=== PATIENT | female | born 1930 | race Caucasian/White ===

== ENCOUNTER 2020-05-11 21:35 | Inpatient (IN) | payer MEDICARE, OTHER ==
[2020-05-12 00:30] LABS: PTT 28.5 sec (22.9-36.1); Prothrombin Time 13.3 sec (12.0-14.7)
[2020-05-12 00:38] LABS: #Basophils 0.1 thou/uL (0.0-0.2); #Lymphocytes 1.8 thou/uL (1.20-3.40); #Monocytes 0.6 thou/uL (0.11-0.59); #Neutrophils 9.4 thou/uL (1.40-6.50); %Basophils 0.6 % (0.0-1.0); %Eosinophils 0.3 % (0.0-10.0); %Neutrophils 79.1 % (42.0-75.0); Hemoglobin 11.1 g/dL (12.0-16.0); Mean Corpuscular HGB CONC 33.6 g/dL (32.0-36.0); Mean Corpuscular Hemoglobin 29.2 pg (27.0-31.0); Mean Platelet Volume 7.4 fL (7.4-10.4); Platelet Count 404 thou/uL (130-400); RBC Distribution Width 15.4 % (11.5-14.5); Red Blood Cell (RBC) Count 3.81 mill/uL (4.20-5.40); White Blood Cell (WBC) Count 11.9 thou/uL (4.8-10.8)
[2020-05-12 01:56] LABS: Troponin I Less than 0.010 ng/mL (< 0.028)
[2020-05-12 01:57] LABS: Anion Gap 11 mmol/L (10-20); BUN (Urea Nitrogen) 31 mg/dL (9.8-20.1); Calc. Creatinine Clearance 0 mL/min (70-130); Carbon Dioxide 25 mmol/L (23-31); Chloride 100 mmol/L (98-107); Estimated GFR-MDRD 36; Potassium 4.4 mmol/L (3.5-5.1); Sodium 132 mmol/L (136-145)
[2020-05-12 01:58] LABS: ALT (SGPT) 11 U/L (8-55); AST (SGOT) 28 U/L (5-34); Albumin 3.6 g/dL (3.4-4.8); Alkaline Phosphatase 72 U/L (40-110); Bilirubin, Total 0.3 mg/dL (0.2-1.2); Calcium 9.1 mg/dL (7.8-10.44); Globulin 3.3 g/dL (2.4-3.5); Glucose 136 mg/dL (83-110); Lipase 76 U/L (8-78); Magnesium 2.3 mg/dL (1.6-2.6); Protein, Total 6.9 g/dL (5.8-8.1)
[2020-05-12 01:59] LABS: Acetaminophen Less than 6.0 mcg/mL (10.0-30.0); Alcohol Less than 10 mg/dL (Less than 10); Salicylate Less than 8.0 mg/dL (15.0-30.0)
[2020-05-12] MEDS ORDERED: cefTRIAXone\\ROCEPHIN 1 GM VIAL ONE (04:01)
[2020-05-12 04:36] LABS: Bacteria/HPF None Seen HPF (None Seen); Bilirubin Negative (Negative); Blood, Urine 2+ (Negative); Clarity Clear (Clear); Glucose, Urine (Dipstick) Normal (Negative); Ketone, Urine Negative (Negative); Leukocyte Negative Leu/uL (Negative); Nitrite Negative (Negative); Protein, Urine (Dipstick) 30 mg/dL (Neg-Trace); RBC/HPF 0-3 HPF (0-3); Squamous Epithelial 0-3 HPF (0-3); Urobilinogen Normal mg/dL (Less than 2)
[2020-05-12] MEDS ORDERED: Ondansetron ODT 4 MG TAB SL PRN (06:15)
[2020-05-12] MEDS ORDERED: Acetaminophen 325 MG TAB PO PRN ×2 (06:15→07:50)
[2020-05-12] MEDS ORDERED: Ondansetron PF 4 MG/2 ML Vial IVP PRN ×2 (06:15→07:50)
[2020-05-12] MEDS ORDERED: Sodium Chloride 0.9% 1,000 ML IV SCH (06:15)
--- NOTE | 2020-05-12 07:24 | RAD ---
CHEST 1 VIEW: Date: 05/11/2020 HISTORY: Not provided. FINDINGS: Elongation of the aorta. Enlarged cardiac silhouette. Pulmonary vessels and hilum are normal. Costoph renic angles are clear. Chronic lung parenchymal changes suspected. No consolidation or mass. No pneu mothorax or acute osseous abnormalities. IMPRESSION: 1. Cardiomegaly. 2. Presumed chronic lung parenchymal changes. POS: OFF
[2020-05-12] MEDS ORDERED: Acetaminophen 650 MG Suppository PR PRN (07:50)
[2020-05-12] MEDS: Sodium Chloride 0.9% 1,000 ML IV SCH (08:00)
[2020-05-12 08:03] VITALS: BMI 18.8
[2020-05-12] MEDS ORDERED: cloNIDine 0.1 MG TAB PO PRN (08:07)
[2020-05-12 09:00] LABS: Medtox Reader # READER 4
[2020-05-12] MEDS ORDERED: Cyanocobalamin (Vitamin B-12) 1,000 MCG TAB PO SCH (09:00)
[2020-05-12 09:01] LABS: Amphetamine Not Detected (NotDetected); Barbiturates Screen Not Detected (NotDetected); Benzodiazepine Screen Not Detected (NotDetected); Cocaine Metabolite Screen Not Detected (NotDetected); Medtox Control Line Valid? VALID (VALID); Methadone Not Detected (NotDetected); Methamphetamine Not Detected (NotDetected); Opiate Screen Not Detected (NotDetected); Oxycodone Screen Not Detected (NotDetected); Phencyclidine (PCP) Not Detected (NotDetected); THC/Cannabinoid Screen Not Detected (NotDetected); Tricyclic Screen Detected (NotDetected)
[2020-05-12] MEDS ORDERED: Levothyroxine Sodium 100 MCG TAB PO SCH (10:00)
[2020-05-12] MEDS: Aspirin 81 mg Enteric Coated Tablet PO SCH (10:37)
[2020-05-12] MEDS: Cyanocobalamin (Vitamin B-12) 1,000 MCG TAB PO SCH (10:37)
[2020-05-12] MEDS: Amlodipine 5 MG TAB PO SCH (10:38)
[2020-05-12] MEDS: Folic Acid 1 MG TAB PO SCH (10:39)
--- NOTE | 2020-05-12 10:49 | HP ---
PRIMARY CARE PHYSICIAN: Dr. Sujit Angeles. CHIEF COMPLAINT: Lethargy. HISTORY OF PRESENT ILLNESS: The patient is an 89-year-old female with a past medical history significant for dementia, anxiety, hypothyroidism, TIAs, hypertension, and hyperlipidemia, who presents to the emergency department via EMS for altered mental status. The patient is currently staying at a Rehab facility, [facility], status post fall. Rehabilitation staff reported that the patient seemed to be lethargic and they were concerned for a stroke. Of note, it was documented by EMS that the patient was started on Seroquel that same day. The patient's baseline is apparently A and O x1. Per EMS documentation, the patient was alert upon arrival. She was found to be mildly hypertensive and mildly tachycardic with normal respirations and a normal SpO2 sat. She is afebrile. The patient was brought into the ER to rule out stroke. In the emergency department, the patient was found to be mildly hypertensive with blood pressure of 169/93 and mildly tachycardic with a heart rate of 95 with normal respirations, normal SpO2, and afebrile. CT brain was negative for any acute intracranial process. CTA of head and neck was negative for any acute process. WBC is 11.9. Lactic acid 1.0. Urine unremarkable and UDS unremarkable. The patient was given a prophylactic dose of Rocephin IVPB per the admitting physician until urine culture result. PAST MEDICAL HISTORY: 1. Dementia. 2. Hypertension. 3. Hyperlipidemia. 4. Hypothyroidism. 5. TIAs. 6. Anxiety. PAST SURGICAL HISTORY: Unable to obtain due to patient's altered mental status. SOCIAL HISTORY: The patient currently resides at [facility], appears to be after status post fall. It is unknown whether she has any history of smoking, alcohol, or drug abuse. FAMILY HISTORY: Unable to obtain due to patient's altered mental status. ALLERGIES: REPORTED ALLERGIES ARE TO , BENAZEPRIL, ESOMEPRAZOLE, HYDROCHLOROTHIAZIDE, IRBESARTAN, OLMESARTAN, PRAVASTATIN, AND RANITIDINE. HOME MEDICATIONS: 1. Norvasc 2.5 mg p.o. daily. 2. Aspirin 81 mg p.o. daily. 3. Cepacol throat lozenges one b.i.d. p.r.n. sore throat. 4. Calcium carbonate 750 mg 1.5 tabs p.o. daily. 5. Clonidine 0.1 mg p.o. q.6 hours p.r.n. elevated blood pressure. 6. Cyanocobalamin 500 mcg, 0.5 tablet, p.o. daily. 7. Ferrous sulfate 325 mg one tab p.o. daily. 8. Folic acid 1 mg p.o. daily. 9. Levothyroxine 100 mcg p.o. daily. 10. Metoprolol succinate 100 mg tablet one tablet daily. 11. Seroquel 12.5 mg half a tablet p.o. b.i.d. p.r.n. agitation. REVIEW OF SYSTEMS: Unable to obtain secondary to patient's dementia. PHYSICAL EXAMINATION: VITAL SIGNS: Temperature 97.9, blood pressure 162/71, heart rate 79, respirations 16, and 99% on room air. CONSTITUTIONAL: The patient is alert and oriented to person. Appears comfortable, resting in bed, smiling, engaging. HEAD: Atraumatic and normocephalic. EYES: PERRLA. Extraocular muscles are intact. Sclerae are nonicteric. ENT: Bilateral TMs are intact. Nares, patent. Oropharynx clear. Tacky mucous membranes. Uvula midline. No oral lesions. NECK: Full range of motion. No cervical spinous tenderness. Trachea is midline. Neck is supple. RESPIRATORY/CHEST: Respirations are even and nonlabored. Clear to auscultation. No rhonchi, wheezes, or rales. CARDIOVASCULAR: S1 and S2 appreciated. No murmurs, rubs, or gallops. ABDOMEN: Soft, nontender, nondistended. Active bowel sounds. No guarding. No rigidity. Negative Rovsing. Negative Lyles sign. BACK: Full range of motion. No central spinous tenderness. No CVA tenderness. UPPER EXTREMITIES: Full range of motion, normal strength, sensation intact. Palpable radial pulses. LOWER EXTREMITIES: Full range of motion, normal strength, sensation intact. Palpable pedal pulses. No swelling. NEUROLOGIC: GCS of 13. Eyes open spontaneously, verbal and appropriate words. Motor response, she obeys commands. LABORATORY DATA AND DIAGNOSTICS: EKG was normal sinus rhythm. Chest x-ray was negative for any acute process. CT of the brain was negative for any acute process. CTA head and neck were negative for any acute process. Sodium 132, potassium 4.4, chloride 100, carbon dioxide 25, BUN 31, creatinine 1.38, glucose 136, lactic acid 1.0, magnesium 2.3, total bilirubin 0.3, AST 28, ALT 11, and alkaline phosphatase 72. Initial troponin negative. TSH 5.194. Lipase 76. WBCs 11.9, hemoglobin 11.1, hematocrit 33.2, and platelets 404. UA showed specific gravity of 1.050, 2+ blood, 4 to 6 wbc's, no bacteria, no leukocyte esterase, no nitrites. Tox screen was negative or unremarkable. Urine cultures are pending. IMPRESSION AND PLAN: 1. Altered mental status. 2. Acute kidney injury. 3. Hyponatremia, chronic. 4. Hypothyroidism. 5. Hypertension. 6. Dementia. The patient presented mildly hypertensive and mildly tachycardic with normal respirations, normal SpO2, and afebrile. 1. CT and CTA, negative for acute process. 2. Chest x-ray negative for acute process. 3. WBCs 11.9, lactic acid 1.0, UA unremarkable, UDS unremarkable. 4. Urine cultures are pending. Upon assessment, the patient appears to be baseline, GCS of 13. Moves all extremities and follows all commands. 1. We will await urine culture. Unlikely related to UTI. 2. The patient was started on Seroquel, which is the most likely cause. 3. We will hold Seroquel for now. Acute kidney injury, presented with a creatinine of 0.98. This morning, creatinine was 1.38. 1. We will continue IV fluids, obtain renal ultrasound. We will avoid nephrotoxic drugs. Hyponatremia, presented with a sodium of 132. 1. Mild. We will continue IV fluids. 2. We will recheck in the a.m. Hypothyroidism, chronic. 1. TSH 5.19, we will obtain free T4. 2. We will restart home dose of levothyroxine 100 mcg per day. Hypertension, chronic. 1. Presented with a blood pressure of 169/93. 2. We will restart patient's home dose of Norvasc, metoprolol, and add clonidine p.r.n. as she takes in the detention for an elevated blood pressure. 3. Restart her aspirin. Dementia. 1. The patient appears to be baseline at this time. SCDs for deep venous thrombosis prophylaxis. No gastrointestinal prophylaxis. Full code. Discussed the case with Dr. Samson. Job ID: [id number] MTDD
[2020-05-12 12:36] LABS: SARS-CoV-2 MS2 Positive; SARS-CoV-2 N Gene Negative; SARS-CoV-2 S Gene Negative; SARS-CoV-2 by NAA Not Detected (NotDetected); SARS-CoV-2 orf1ab Negative
--- NOTE | 2020-05-12 13:39 | ULT ---
RENAL ULTRASOUND: HISTORY: Acute renal insufficiency. FINDINGS: Real-time imaging of the right and left kidneys was performed. The right kidney measures 9.6 and the left 9.4 cm. There is a 2.6 cm lower pole right renal cyst and a 2 cm mid pole left renal cyst. Th e right kidney shows some increased echogenicity in the lower pole region that is indistinct and may just represent cortical scarring. An entity such as an angiomyelipoma is not excluded. Consideratio n for CT if this is possible would be recommended for further assessment. The bladder region appears unremarkable. IMPRESSION: 1. Bilateral renal cysts. 2. Echogenic area in the lower pole of the right kidney. I suspect that this was representing corti power scarring. An entity such as an angiomyelipoma is not excluded. CT with and without contrast if possible would be helpful in further assessment. POS: WILDER
--- NOTE | 2020-05-12 14:46 | PDOC.EVN ---
Event Note - Event Note Event Note: I spoke to her daughter via telephone about this case. Answered all of her questions. She had no further questions.
[2020-05-13] MEDS: Sodium Chloride 0.9% 1,000 ML IV SCH ×3 (00:51→21:32)
[2020-05-13] MEDS ORDERED: Lorazepam 2 MG/ML VIAL SLOW IVP SCH (03:00)
[2020-05-13] MEDS: Levothyroxine Sodium 100 MCG TAB PO SCH (05:31)
[2020-05-13 06:09] LABS: #Basophils 0.1 thou/uL (0.0-0.2); #Eosinphils 0.4 thou/uL (0.0-0.7); #Lymphocytes 2.7 thou/uL (1.20-3.40); #Monocytes 0.6 thou/uL (0.11-0.59); #Neutrophils 5.7 thou/uL (1.40-6.50); %Basophils 0.9 % (0.0-1.0); %Eosinophils 3.8 % (0.0-10.0); %Lymphocytes 28.9 % (21.0-51.0); %Monocytes 6.6 % (0.0-10.0); %Neutrophils 59.8 % (42.0-75.0); Hemoglobin 10.2 g/dL (12.0-16.0); Mean Corpuscular HGB CONC 33.5 g/dL (32.0-36.0); Mean Corpuscular Hemoglobin 29.8 pg (27.0-31.0); Mean Platelet Volume 7.1 fL (7.4-10.4); Platelet Count 396 thou/uL (130-400); RBC Distribution Width 15.5 % (11.5-14.5); Red Blood Cell (RBC) Count 3.41 mill/uL (4.20-5.40); White Blood Cell (WBC) Count 9.5 thou/uL (4.8-10.8)
[2020-05-13 06:32] LABS: Anion Gap 10 mmol/L (10-20); BUN (Urea Nitrogen) 17 mg/dL (9.8-20.1); Calc. Creatinine Clearance 34 mL/min (70-130); Calcium 8.4 mg/dL (7.8-10.44); Carbon Dioxide 23 mmol/L (23-31); Chloride 104 mmol/L (98-107); Estimated GFR-MDRD 65; Glucose 91 mg/dL (83-110); Potassium 3.9 mmol/L (3.5-5.1); Sodium 133 mmol/L (136-145)
[2020-05-13] MEDS: Cyanocobalamin (Vitamin B-12) 1,000 MCG TAB PO SCH (09:20)
[2020-05-13] MEDS: Ferrous Sulfate 325 MG TAB PO SCH (09:20)
[2020-05-13] MEDS: Aspirin 81 mg Enteric Coated Tablet PO SCH (09:20)
[2020-05-13] MEDS: Amlodipine 5 MG TAB PO SCH ×2 (09:21→21:33)
[2020-05-13] MEDS: Folic Acid 1 MG TAB PO SCH (09:22)
--- NOTE | 2020-05-13 14:26 | PDOC.HOSPP ---
- Subjective Encounter Date: 05/13/20 Encounter Time: 10:50 Subjective: Family at bedside. She is still lethargic but she is alert oriented. Recognized her . She is recently coming from [facility]. Acute kidney injury resolved. Sodium slight improvement. Son at bedside. - Objective Vital Signs & Weight: Vital Signs (12 hours) Temp Pulse Resp BP BP Pulse Ox 05/13/20 10:58 97.4 F L 75 14 135/82 97 05/13/20 09:21 75 161/68 H 05/13/20 07:23 98.1 F 75 14 161/88 H 96 05/13/20 05:35 97.2 F L 75 18 159/75 H 98 Weight Admit Weight 99 lb 14.4 oz Weight 99 lb 14.4 oz I&O: 05/12/20 05/13/20 05/14/20 06:59 06:59 06:59 Intake Total 2060 Output Total 402 Balance 1658 Result Diagrams: 05/13/20 05:47 05/13/20 05:47 Hospitalist ROS - Medication Medications: Active Medications Generic Name Dose Route Start Last Admin Trade Name Freq PRN Reason Stop Dose Admin Amlodipine Besylate 2.5 mg 05/12/20 09:00 05/13/20 09:21 Amlodipine 5 Mg Tab PO 2.5 mg DAILY JUAN C Administration Aspirin 81 mg 05/12/20 09:00 05/13/20 09:20 Aspirin 81 Mg Enteric Coated Tablet PO 81 mg DAILY JUAN C Administration Cyanocobalamin 250 mcg 05/12/20 09:00 05/13/20 09:20 Cyanocobalamin (Vitamin B-12) 1,000 Mcg Tab PO 250 mcg DAILY JUAN C Administration Ferrous Sulfate 325 mg 05/13/20 08:00 05/13/20 09:20 Ferrous Sulfate 325 Mg Tab PO 325 mg QAM-WM JUAN C Administration Folic Acid 1 mg 05/12/20 09:00 05/13/20 09:22 Folic Acid 1 Mg Tab PO 1 mg DAILY JUAN C Administration Sodium Chloride 1,000 mls @ 75 mls/hr 05/12/20 08:00 05/13/20 10:40 Normal Saline 0.9% IV Not Given .[id number] JUAN C Levothyroxine Sodium 100 mcg 05/13/20 06:00 05/13/20 05:31 Levothyroxine Sodium 100 Mcg Tab PO 100 mcg 0600 JUAN C Administration Metoprolol Succinate 100 mg 05/12/20 09:00 05/13/20 09:20 Metoprolol Succinate Xl 100 Mg Tab PO 100 mg DAILY JUAN C Administration Sodium Chloride 10 ml 05/12/20 09:00 05/13/20 09:22 Flush - Normal Saline 10 Ml Syringe IVF Not Given Q12HR JUAN C - Exam General Appearance: NAD, awake alert, ill appearing Eye: PERRL ENT: normocephalic atraumatic Neck: supple Heart: RRR, normal peripheral pulses Respiratory: CTAB, normal chest expansion Gastrointestinal: soft, normal bowel sounds Extremities: 1+ LE edema Neurological: no focal deficits Psychiatric: oriented to person Hosp A/P - Plan Metabolic encephalopathy probably due to dehydration -Seems improving Mild leukocytosis secondary to dehydration resolved. Acute kidney injury -Creatinine improved. Chronic hyponatremia -Very mild and sodium around 133. She is getting mild IV hydration. Accelerated hypertension -She is on very low-dose Norvasc which I have increased in addition to her Toprol. No infectious source for her metabolic encephalopathy which seems to be improved and - she is back to baseline per son who is at bedside this morning. Plan to send her back to the rehab on Friday.
[2020-05-14] MEDS: Sodium Chloride 0.9% 1,000 ML IV SCH (03:41)
[2020-05-14] MEDS: Levothyroxine Sodium 100 MCG TAB PO SCH (05:37)
[2020-05-14 05:52] LABS: #Basophils 0.1 thou/uL (0.0-0.2); #Eosinphils 0.3 thou/uL (0.0-0.7); #Lymphocytes 2.4 thou/uL (1.20-3.40); #Monocytes 0.6 thou/uL (0.11-0.59); #Neutrophils 4.6 thou/uL (1.40-6.50); %Basophils 0.9 % (0.0-1.0); %Eosinophils 4.2 % (0.0-10.0); %Lymphocytes 29.6 % (21.0-51.0); %Monocytes 7.2 % (0.0-10.0); %Neutrophils 58.1 % (42.0-75.0); Hemoglobin 10.1 g/dL (12.0-16.0); Mean Corpuscular HGB CONC 33.6 g/dL (32.0-36.0); Mean Corpuscular Hemoglobin 29.9 pg (27.0-31.0); Mean Platelet Volume 7.3 fL (7.4-10.4); Platelet Count 353 thou/uL (130-400); RBC Distribution Width 15.1 % (11.5-14.5); Red Blood Cell (RBC) Count 3.37 mill/uL (4.20-5.40); White Blood Cell (WBC) Count 7.9 thou/uL (4.8-10.8)
[2020-05-14 06:15] LABS: Anion Gap 12 mmol/L (10-20); BUN (Urea Nitrogen) 16 mg/dL (9.8-20.1); Calc. Creatinine Clearance 34 mL/min (70-130); Carbon Dioxide 21 mmol/L (23-31); Chloride 106 mmol/L (98-107); Estimated GFR-MDRD 66; Glucose 99 mg/dL (83-110); Potassium 3.5 mmol/L (3.5-5.1); Sodium 135 mmol/L (136-145)
[2020-05-14] MEDS: Ferrous Sulfate 325 MG TAB PO SCH ×3 (08:14→20:28)
[2020-05-14] MEDS: Aspirin 81 mg Enteric Coated Tablet PO SCH ×2 (08:15→09:15)
[2020-05-14] MEDS: Cyanocobalamin (Vitamin B-12) 1,000 MCG TAB PO SCH (08:15)
[2020-05-14] MEDS: Folic Acid 1 MG TAB PO SCH ×2 (08:15→09:16)
[2020-05-14] MEDS ORDERED: Simethicone Chewable 80 MG TAB PO PRN (08:15)
[2020-05-14] MEDS ORDERED: Diabetic Tussin 200 MG/10 ML UDCUP PO PRN (08:15)
[2020-05-14] MEDS: Amlodipine 5 MG TAB PO SCH ×2 (08:15→20:28)
[2020-05-14] MEDS ORDERED: Acetaminophen 500 MG TAB PO PRN (08:15)
[2020-05-14] MEDS ORDERED: Bisacodyl 10 MG SUPP PR PRN (08:15)
[2020-05-14] MEDS ORDERED: Cepastat Lozenges 1 LOZ PO PRN (08:28)
[2020-05-14] MEDS: Docusate 100 MG CAP PO SCH ×2 (09:54→20:28)
[2020-05-14] MEDS: Polyethylene Glycol 3350 17 GM Packet PO SCH (09:54)
[2020-05-14] MEDS: cefTRIAXone\\ROCEPHIN 1 GM in Sodium Chloride 0.9% 100 ML IVPB SCH (09:55)
--- NOTE | 2020-05-14 11:55 | PDOC.HOSPP ---
- Subjective Encounter Date: 05/14/20 Encounter Time: 08:40 Subjective: Patient seen and examined. No new complaints. No overnight events - Objective Vital Signs & Weight: Vital Signs (12 hours) Temp Pulse Resp BP BP BP Pulse Ox 05/14/20 08:21 96 05/14/20 08:15 75 153/75 H 05/14/20 07:33 97.5 F L 75 16 153/75 H 96 05/14/20 04:16 97.8 F 77 16 149/73 H 97 05/14/20 00:06 98.2 F 79 16 153/74 H 96 Weight Admit Weight 99 lb 14.4 oz Weight 99 lb 14.4 oz I&O: 05/13/20 05/14/20 05/15/20 06:59 06:59 06:59 Intake Total 0 Output Total 402 500 Balance 1658 -500 Result Diagrams: 05/14/20 05:21 05/14/20 05:21 Radiology Reviewed by me: Yes EKG Reviewed by me: Yes Hospitalist ROS - Review of Systems Constitutional: reports: weakness. denies: fever, chills, sweats, malaise, other ENT: denies: ear pain, ear discharge, nose pain, nose discharge, nose congestion, mouth pain, mouth swelling, throat pain, throat swelling, other Respiratory: denies: cough, dry, shortness of breath, hemoptysis, SOB with excertion, pleuritic pain, sputum, wheezing, other Cardiovascular: denies: chest pain, palpitations, orthopnea, paroxysmal noc. dyspnea, edema, light headedness, other Gastrointestinal: denies: nausea, vomiting, abdominal pain, diarrhea, constipation, melena, hematochezia, other Genitourinary: denies: dysuria, frequency, incontinence, hematuria, retention, other Musculoskeletal: denies: neck pain, shoulder pain, arm pain, back pain, hand pain, leg pain, foot pain, other Skin: denies: rash, lesions, pancho, bruising, other - Medication Medications: Active Medications Generic Name Dose Route Start Last Admin Trade Name Freq PRN Reason Stop Dose Admin Amlodipine Besylate 5 mg 05/13/20 21:00 05/14/20 08:15 Amlodipine 5 Mg Tab PO 5 mg BID JUAN C Administration Aspirin 81 mg 05/12/20 09:00 05/14/20 08:15 Aspirin 81 Mg Enteric Coated Tablet PO 81 mg DAILY JUAN C Administration Aspirin 81 mg 05/14/20 09:00 05/14/20 09:15 Aspirin 81 Mg Enteric Coated Tablet PO Not Given DAILY [facility] Cyanocobalamin 250 mcg 05/12/20 09:00 05/14/20 08:15 Cyanocobalamin (Vitamin B-12) 1,000 Mcg Tab PO 250 mcg DAILY JUAN C Administration Docusate Sodium 100 mg 05/14/20 09:00 05/14/20 09:54 Docusate 100 Mg Cap PO 100 mg BID JUAN C Administration Ferrous Sulfate 325 mg 05/13/20 08:00 05/14/20 08:14 Ferrous Sulfate 325 Mg Tab PO 325 mg QAM-WM JUAN C Administration Ferrous Sulfate 325 mg 05/14/20 09:00 05/14/20 09:16 Ferrous Sulfate 325 Mg Tab PO Not Given BID JUAN C Folic Acid 1 mg 05/12/20 09:00 05/14/20 08:15 Folic Acid 1 Mg Tab PO 1 mg DAILY JUAN C Administration Folic Acid 1 mg 05/14/20 09:00 05/14/20 09:16 Folic Acid 1 Mg Tab PO Not Given DAILY [facility] Ceftriaxone Sodium 1 gm/ 100 mls @ 200 mls/hr 05/14/20 09:00 05/14/20 09:55 Sodium Chloride IVPB 100 mls Q24HR JUAN C Administration Levothyroxine Sodium 100 mcg 05/13/20 06:00 05/14/20 05:37 Levothyroxine Sodium 100 Mcg Tab PO 100 mcg 0600 JUAN C Administration Metoprolol Succinate 100 mg 05/12/20 09:00 05/14/20 08:15 Metoprolol Succinate Xl 100 Mg Tab PO 100 mg DAILY JUAN C Administration Polyethylene Glycol 17 gm 05/14/20 09:00 05/14/20 09:54 Polyethylene Glycol 3350 17 Gm Packet PO 17 gm DAILY JUAN C Administration Sodium Chloride 10 ml 05/12/20 09:00 05/14/20 09:17 Flush - Normal Saline 10 Ml Syringe IVF Not Given Q12HR [facility] - Exam General Appearance: NAD, awake alert Eye: PERRL, anicteric sclera ENT: normocephalic atraumatic, no oropharyngeal lesions Neck: supple, symmetric, no JVD Heart: RRR, no murmur, no gallops, no rubs Respiratory: CTAB, no wheezes, no rales, no ronchi Gastrointestinal: soft, non-tender, non-distended, normal bowel sounds Extremities: no cyanosis, no clubbing, no edema Skin: normal turgor, no lesions Neurological: no new deficit Musculoskeletal: normal tone, normal strength Psychiatric: normal affect, normal behavior Hosp A/P (1) UTI (urinary tract infection) Status: Acute (2) Metabolic encephalopathy Code(s): G93.41 - METABOLIC ENCEPHALOPATHY Status: Resolved (3) Hyponatremia Code(s): E87.1 - HYPO-OSMOLALITY AND HYPONATREMIA Status: Resolved (4) Acute kidney injury Code(s): N17.9 - ACUTE KIDNEY FAILURE, UNSPECIFIED Status: Resolved (5) Anemia, normocytic normochromic Code(s): D64.9 - ANEMIA, UNSPECIFIED Status: Chronic - Plan old records reviewed/req, PT/OT, social media designer Start Rocephin 1 g every 24 hours Discontinue IV fluid Monitor today, eventual rehab placement upon discharge
[2020-05-14] MEDS: Calcium Carbonate 500 MG TAB PO SCH (14:44)
[2020-05-15] MEDS: Levothyroxine Sodium 100 MCG TAB PO SCH (06:13)
[2020-05-15 06:21] LABS: #Basophils 0.1 thou/uL (0.0-0.2); #Eosinphils 0.3 thou/uL (0.0-0.7); #Lymphocytes 2.9 thou/uL (1.20-3.40); #Monocytes 0.5 thou/uL (0.11-0.59); #Neutrophils 6.2 thou/uL (1.40-6.50); %Basophils 0.5 % (0.0-1.0); %Eosinophils 3.1 % (0.0-10.0); %Lymphocytes 29.1 % (21.0-51.0); %Monocytes 5.4 % (0.0-10.0); Hemoglobin 10.9 g/dL (12.0-16.0); Mean Corpuscular HGB CONC 32.8 g/dL (32.0-36.0); Mean Corpuscular Hemoglobin 29.2 pg (27.0-31.0); Mean Corpuscular Volume 89.1 fL (78.0-98.0); Mean Platelet Volume 7.2 fL (7.4-10.4); Platelet Count 378 thou/uL (130-400); RBC Distribution Width 15.2 % (11.5-14.5); Red Blood Cell (RBC) Count 3.74 mill/uL (4.20-5.40); White Blood Cell (WBC) Count 10.1 thou/uL (4.8-10.8)
[2020-05-15 06:44] LABS: Anion Gap 12 mmol/L (10-20); BUN (Urea Nitrogen) 16 mg/dL (9.8-20.1); Calc. Creatinine Clearance 31 mL/min (70-130); Carbon Dioxide 23 mmol/L (23-31); Chloride 102 mmol/L (98-107); Estimated GFR-MDRD 59; Glucose 101 mg/dL (83-110); Potassium 3.7 mmol/L (3.5-5.1); Sodium 133 mmol/L (136-145)
[2020-05-15] MEDS: Amlodipine 5 MG TAB PO SCH ×2 (08:34→23:31)
[2020-05-15] MEDS: Aspirin 81 mg Enteric Coated Tablet PO SCH ×2 (08:34→08:37)
[2020-05-15] MEDS: Cyanocobalamin (Vitamin B-12) 1,000 MCG TAB PO SCH (08:34)
[2020-05-15] MEDS: Folic Acid 1 MG TAB PO SCH ×2 (08:37→08:38)
[2020-05-15] MEDS: Ferrous Sulfate 325 MG TAB PO SCH ×3 (08:37→23:31)
[2020-05-15] MEDS: Docusate 100 MG CAP PO SCH ×2 (08:37→23:30)
[2020-05-15] MEDS: cefTRIAXone\\ROCEPHIN 1 GM in Sodium Chloride 0.9% 100 ML IVPB SCH (08:38)
[2020-05-15] MEDS: Polyethylene Glycol 3350 17 GM Packet PO SCH (08:39)
[2020-05-15] MEDS: Calcium Carbonate 500 MG TAB PO SCH (10:45)
--- NOTE | 2020-05-15 11:26 | PDOC.HOSPP ---
- Subjective Encounter Date: 05/15/20 Encounter Time: 09:00 Subjective: Patient seen and examined bedside today, no overnight event, no new complaint, - Objective Vital Signs & Weight: Vital Signs (12 hours) Temp Pulse Pulse Resp BP BP BP 05/15/20 09:24 94 111/69 05/15/20 08:34 87 153/81 H 05/15/20 08:00 05/15/20 07:00 98.1 F 87 18 153/81 H 05/15/20 03:32 98.1 F 81 18 149/70 H 05/15/20 00:48 97.8 F 86 18 156/73 H Pulse Ox 05/15/20 09:24 05/15/20 08:34 05/15/20 08:00 97 05/15/20 07:00 97 05/15/20 03:32 97 05/15/20 00:48 96 Weight Admit Weight 99 lb 14.4 oz Weight 99 lb 14.4 oz I&O: 05/14/20 05/15/20 05/16/20 06:59 06:59 06:59 Intake Total 1480 Output Total 500 800 Balance -500 680 Result Diagrams: 05/15/20 06:09 05/15/20 06:09 Hospitalist ROS - Review of Systems ENT: denies: ear pain, ear discharge, nose pain, nose discharge, nose congestion, mouth pain, mouth swelling, throat pain, throat swelling, other Respiratory: denies: cough, dry, shortness of breath, hemoptysis, SOB with excertion, pleuritic pain, sputum, wheezing, other Cardiovascular: denies: chest pain, palpitations, orthopnea, paroxysmal noc. dyspnea, edema, light headedness, other Gastrointestinal: denies: nausea, vomiting, abdominal pain, diarrhea, constipation, melena, hematochezia, other Genitourinary: denies: dysuria, frequency, incontinence, hematuria, retention, other Musculoskeletal: denies: neck pain, shoulder pain, arm pain, back pain, hand pain, leg pain, foot pain, other - Medication Medications: Active Medications Generic Name Dose Route Start Last Admin Trade Name Freq PRN Reason Stop Dose Admin Amlodipine Besylate 5 mg 05/13/20 21:00 05/15/20 08:34 Amlodipine 5 Mg Tab PO 5 mg BID JUAN C Administration Aspirin 81 mg 05/12/20 09:00 05/15/20 08:34 Aspirin 81 Mg Enteric Coated Tablet PO 81 mg DAILY [facility] Administration Aspirin 81 mg 05/14/20 09:00 05/15/20 08:37 Aspirin 81 Mg Enteric Coated Tablet PO Not Given DAILY [facility] Calcium Carbonate 750 mg 05/14/20 09:00 05/15/20 10:45 Calcium Carbonate 500 Mg Tab PO 750 mg DAILY JUAN C Administration Cyanocobalamin 250 mcg 05/12/20 09:00 05/15/20 08:34 Cyanocobalamin (Vitamin B-12) 1,000 Mcg Tab PO 250 mcg DAILY [facility] Administration Docusate Sodium 100 mg 05/14/20 09:00 05/15/20 08:37 Docusate 100 Mg Cap PO 100 mg BID [facility] Administration Ferrous Sulfate 325 mg 05/13/20 08:00 05/15/20 08:37 Ferrous Sulfate 325 Mg Tab PO 325 mg QAM-WM JUAN C Administration Ferrous Sulfate 325 mg 05/14/20 09:00 05/15/20 08:38 Ferrous Sulfate 325 Mg Tab PO Not Given BID [facility] Folic Acid 1 mg 05/12/20 09:00 05/15/20 08:37 Folic Acid 1 Mg Tab PO 1 mg DAILY [facility] Administration Folic Acid 1 mg 05/14/20 09:00 05/15/20 08:38 Folic Acid 1 Mg Tab PO Not Given DAILY [facility] Ceftriaxone Sodium 1 gm/ 100 mls @ 200 mls/hr 05/14/20 09:00 05/15/20 08:38 Sodium Chloride IVPB 100 mls Q24HR JUAN C Administration Levothyroxine Sodium 100 mcg 05/13/20 06:00 05/15/20 06:13 Levothyroxine Sodium 100 Mcg Tab PO 100 mcg 0600 [facility] Administration Metoprolol Succinate 100 mg 05/12/20 09:00 05/15/20 08:37 Metoprolol Succinate Xl 100 Mg Tab PO 100 mg DAILY JUAN C Administration Polyethylene Glycol 17 gm 05/14/20 09:00 05/15/20 08:39 Polyethylene Glycol 3350 17 Gm Packet PO 17 gm DAILY [facility] Administration Sodium Chloride 10 ml 05/12/20 09:00 05/15/20 08:39 Flush - Normal Saline 10 Ml Syringe IVF 10 ml Q12HR JUAN C Administration - Exam General Appearance: NAD, awake alert Eye: PERRL, anicteric sclera ENT: normocephalic atraumatic, no oropharyngeal lesions Neck: supple, symmetric, no JVD, no thyromegaly Heart: RRR, no murmur, no gallops, no rubs Respiratory: CTAB, no wheezes, no rales, no ronchi Gastrointestinal: soft, non-tender, non-distended, normal bowel sounds Extremities: no cyanosis, no clubbing, no edema Skin: normal turgor, no lesions Neurological: no focal deficits Musculoskeletal: normal tone, normal strength Psychiatric: normal affect, normal behavior Hosp A/P (1) UTI (urinary tract infection) Status: Acute Qualifiers: Urinary tract infection type: acute cystitis Hematuria presence: without hematuria Qualified Code(s): N30.00 - Acute cystitis without hematuria (2) Metabolic encephalopathy Code(s): G93.41 - METABOLIC ENCEPHALOPATHY Status: Resolved (3) Hyponatremia Code(s): E87.1 - HYPO-OSMOLALITY AND HYPONATREMIA Status: Resolved (4) Acute kidney injury Code(s): N17.9 - ACUTE KIDNEY FAILURE, UNSPECIFIED Status: Resolved (5) Anemia, normocytic normochromic Code(s): D64.9 - ANEMIA, UNSPECIFIED Status: Chronic (6) Hypothyroidism Code(s): E03.9 - HYPOTHYROIDISM, UNSPECIFIED Status: Acute Qualifiers: Hypothyroidism type: unspecified Qualified Code(s): E03.9 - Hypothyroidism, unspecified (7) Hypertension Code(s): I10 - ESSENTIAL (PRIMARY) HYPERTENSION Status: Chronic Qualifiers: Hypertension type: essential hypertension Qualified Code(s): I10 - Essential (primary) hypertension (8) Anxiety and depression Code(s): F41.9 - ANXIETY DISORDER, UNSPECIFIED; F32.9 - MAJOR DEPRESSIVE DISORDER, SINGLE EPISODE, UNSPECIFIED Status: Chronic - Plan old records reviewed/req, continue antibiotics, PT/OT, psychotherapist social worker Continue IV Rocephin, Follow-up on urine culture and sensitivity result to change antibiotic therapy accordingly Discharge planning Medication reviewed and continue provide symptomatic and supportive care
--- NOTE | 2020-05-15 11:58 | CT ---
PRELIMINARY REPORT/[facility]/EMERGENCY AFTER HOURS PROCEDURE EXAM: CTA Head and Neck with Intravenous Contrast. CT Head without Contrast. CLINICAL HISTORY: 89-year-old female with history of dementia presents from residential for concerns of lethargy. It w as noted that she started Seroquel today. Patient's baseline is alert and oriented x1 to person per EMS. EMS stated that the patient is more alert than normal. On my evaluation today the patient is jacqueline rt to voice, however oriented x0. Patient does provide nonsense responses to questions. TECHNIQUE: Axial CTA images of the head and neck performed with intravenous contrast. MIP reconstructed images w ere created and reviewed. Axial computed tomography images of the head/brain performed with/without intravenous contrast. Note: Per PQRS, the description of internal carotid artery percent stenosis, including 0 percent or n ormal exam, is based on [place] Symptomatic Carotid Endarterectomy Trial (NASCET) criteria. CONTRAST: With; 60ML ISOVUE 370 intravenous. COMPARISON: None provided. FINDINGS: CT HEAD: BRAIN: No acute intraparenchymal hemorrhage. No mass lesion. No CT evidence for acute territorial infarct. N o midline shift or extra-axial collection. Age-related atrophy. 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 VENTRICLES: No hydrocephalus. ORBITS: The orbits are unremarkable. SINUSES AND MASTOIDS: The paranasal sinuses and mastoid air cells are clear. CTA NECK: No significant atherosclerotic disease. Minimal calcification at the right carotid bulb. COMMON CAROTID ARTERIES No significant stenosis. No dissection or occlusion. INTERNAL CAROTID ARTERIES No stenosis by NASCET criteria. No dissection or occlusion. VERTEBRAL ARTERIES No significant stenosis. No dissection or occlusion. CTA HEAD: ANTERIOR CEREBRAL ARTERIES No significant stenosis. No occlusion. No aneurysm. MIDDLE CEREBRAL ARTERIES No significant stenosis. No occlusion. No aneurysm. POSTERIOR CEREBRAL ARTERIES No significant stenosis. No occlusion. No aneurysm. BASILAR ARTERY No significant stenosis. No occlusion. No aneurysm. OTHER: SOFT TISSUES No acute finding. No masses or lymphadenopathy. BONES No acute osseous abnormality. Moderate degenerative changes in the cervical spine. IMPRESSION: 1. Unremarkable CTA of the head and neck. 2. No acute intracranial abnormality. ELECTRONICALLY SIGNED BY: Truong Albert M.D. May 12, 2020 2:43:20 AM CDT This report is intended for review by the ordering physician only, in accordance of law. If you recei ve this report in error, please call [facility] at [phone]. FINAL REPORT EXAM: CT ANGIOGRAM OF THE HEAD AND NECK INDICATION: Stroke COMPARISON: None TECHNIQUE: CT angiogram of the head and neck are performed in the axial plane. Three-dimensional refo rmatted images are submitted for interpretation. FINDINGS: CTA OF THE HEAD WITH AND WITHOUT CONTRAST: NONCONTRAST HEAD CT: No parenchymal hemorrhage. No extra-axial hematoma. No midline shift. Basilar cisterns are patent. Age-appropriate atrophy. Chronic small vessel ischemic changes white matter. Calcification/mineralization in the left [place] matter structures. Intact calvarium. Adequate aeration of the sinuses and mastoid air cells. POSTCONTRAST CT OF BRAIN: Pathologic enhancement: No pathologic enhancement the brain. Postcontrast soft tissue neck CT: Aerodigestive tract:Aerodigestive tract is patent. No mucosal abnormality. Sinuses: Adequate aeration. Orbits: Bilateral ocular lenses are appropriately located. Both globes are intact. Retrobulbar fat is preserved. Symmetric attenuation the optic nerves and ocular rectus muscles. Salivary glands:Symmetric attenuation. Thyroid gland: Diminutive. Lymph nodes: No evidence of lymphadenopathy by size criteria. Paraspinal muscles: Symmetric attenuation of the sternocleidomastoid muscles. Appropriate attenuation of the paraspinal muscles. Cervical spine:Vertebral body height is maintained. No fracture. Varying degrees of central canal eric nosis and neural foraminal narrowing. Limited evaluation by technique. Upper mediastinum and lung apices: No acute abnormality. There is fluid in the visualized upper thora cic esophagus. CTA OF THE NECK WITH CONTRAST: Aorta: Atherosclerosis. Right carotid artery: Appropriate enhancement and luminal diameter. No significant stenosis based upo n NASCET criteria. Minimal calcified plaque in the carotid bifurcation. Left carotid: Appropriate enhancement and luminal diameter. No significant stenosis based upon NASCET criteria. Subclavian arteries:Symmetric and patent. Vertebral arteries:Patent throughout the course in the neck. Dominant right vertebral artery. Left ve rtebral artery originates directly off the arch. CTA OF THE BRAIN: Intracranial internal carotid arteries:Minimal atherosclerosis involving the paraclinoid segments. 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 Right A2 segment is opacified via a patent anterior communicating artery. Proximal A2 segments have appropriate enhancement and luminal diameter. Proximal M1 segments and proximal MCA branches of appro priate enhancement and luminal diameter. Intracranial vertebral arteries: Appropriate enhancement and luminal diameter. Bilateral PICA artery origins have appropriate enhancement and luminal diameter. Posterior circulation: Appropriate enhancement and luminal diameter the basilar artery and bilateral P1 segments. IMPRESSION: No hemodynamically significant stenosis, occlusion or aneurysmal formation. This report is in agreement with the preliminary report by [facility]. Transcribed Date/Time: 05/15/2020 11:58 AM
[2020-05-15] MEDS ORDERED: Ciprofloxacin 500 MG TAB PO SCH (20:00)
[2020-05-15] MEDS: Sulfameth/Trimethoprim DS 800-160mg TAB PO SCH (23:31)
[2020-05-16] MEDS: Levothyroxine Sodium 100 MCG TAB PO SCH (06:11)
[2020-05-16] MEDS: Aspirin 81 mg Enteric Coated Tablet PO SCH ×2 (08:05→08:09)
[2020-05-16] MEDS: Cyanocobalamin (Vitamin B-12) 1,000 MCG TAB PO SCH (08:06)
[2020-05-16] MEDS: Folic Acid 1 MG TAB PO SCH ×2 (08:06→08:09)
[2020-05-16] MEDS: Docusate 100 MG CAP PO SCH (08:06)
[2020-05-16] MEDS: Sulfameth/Trimethoprim DS 800-160mg TAB PO SCH (08:06)
[2020-05-16] MEDS: Amlodipine 5 MG TAB PO SCH (08:07)
[2020-05-16] MEDS: Ferrous Sulfate 325 MG TAB PO SCH ×2 (08:08→08:09)
[2020-05-16] MEDS: Polyethylene Glycol 3350 17 GM Packet PO SCH (08:08)
[2020-05-16] MEDS: Calcium Carbonate 500 MG TAB PO SCH (09:10)
--- NOTE | 2020-05-16 10:15 | PDOC.HOSPP ---
- Subjective Encounter Date: 05/16/20 Encounter Time: 08:30 Subjective: Patient seen and examined. No new complaints. No overnight events - Objective Vital Signs & Weight: Vital Signs (12 hours) Temp Pulse Resp BP BP BP Pulse Ox 05/16/20 08:07 85 134/82 05/16/20 08:00 98.2 F 85 16 134/82 96 05/16/20 04:00 70 14 129/80 96 05/15/20 23:31 81 05/15/20 23:00 98.4 F 76 16 137/71 94 L Weight Admit Weight 99 lb 14.4 oz Weight 99 lb 14.4 oz I&O: 05/15/20 05/16/20 05/17/20 06:59 06:59 06:59 Intake Total 1480 Output Total 800 Balance 680 Result Diagrams: 05/15/20 06:09 05/15/20 06:09 Hospitalist ROS - Review of Systems ENT: denies: ear pain, ear discharge, nose pain, nose discharge, nose congestion, mouth pain, mouth swelling, throat pain, throat swelling, other Respiratory: denies: cough, dry, shortness of breath, hemoptysis, SOB with excertion, pleuritic pain, sputum, wheezing, other Cardiovascular: denies: chest pain, palpitations, orthopnea, paroxysmal noc. dyspnea, edema, light headedness, other Gastrointestinal: denies: nausea, vomiting, abdominal pain, diarrhea, constipation, melena, hematochezia, other Genitourinary: denies: dysuria, frequency, incontinence, hematuria, retention, other Musculoskeletal: denies: neck pain, shoulder pain, arm pain, back pain, hand pain, leg pain, foot pain, other - Medication Medications: Active Medications Generic Name Dose Route Start Last Admin Trade Name Freq PRN Reason Stop Dose Admin Amlodipine Besylate 5 mg 05/13/20 21:00 05/16/20 08:07 Amlodipine 5 Mg Tab PO 5 mg BID [facility] Administration Aspirin 81 mg 05/12/20 09:00 05/16/20 08:05 Aspirin 81 Mg Enteric Coated Tablet PO 81 mg DAILY [facility] Administration Aspirin 81 mg 05/14/20 09:00 05/16/20 08:09 Aspirin 81 Mg Enteric Coated Tablet PO Not Given DAILY [facility] Calcium Carbonate 750 mg 05/14/20 09:00 05/16/20 09:10 Calcium Carbonate 500 Mg Tab PO 750 mg DAILY [facility] Administration Cyanocobalamin 250 mcg 05/12/20 09:00 05/16/20 08:06 Cyanocobalamin (Vitamin B-12) 1,000 Mcg Tab PO 250 mcg DAILY [facility] C Administration Docusate Sodium 100 mg 05/14/20 09:00 05/16/20 08:06 Docusate 100 Mg Cap PO 100 mg BID JUAN C Administration Ferrous Sulfate 325 mg 05/13/20 08:00 05/16/20 08:08 Ferrous Sulfate 325 Mg Tab PO 325 mg QAM-WM JUAN C Administration Ferrous Sulfate 325 mg 05/14/20 09:00 05/16/20 08:09 Ferrous Sulfate 325 Mg Tab PO Not Given BID JUAN C Folic Acid 1 mg 05/12/20 09:00 05/16/20 08:06 Folic Acid 1 Mg Tab PO 1 mg DAILY JU[facility] C Administration Folic Acid 1 mg 05/14/20 09:00 05/16/20 08:09 Folic Acid 1 Mg Tab PO Not Given DAILY [facility] C Levothyroxine Sodium 100 mcg 05/13/20 06:00 05/16/20 06:11 Levothyroxine Sodium 100 Mcg Tab PO 100 mcg 0600 [facility] C Administration Metoprolol Succinate 100 mg 05/12/20 09:00 05/16/20 08:06 Metoprolol Succinate Xl 100 Mg Tab PO 100 mg DAILY [facility] C Administration Polyethylene Glycol 17 gm 05/14/20 09:00 05/16/20 08:08 Polyethylene Glycol 3350 17 Gm Packet PO 17 gm DAILY [facility] C Administration Sodium Chloride 10 ml 05/12/20 09:00 05/16/20 08:09 Flush - Normal Saline 10 Ml Syringe IVF Not Given Q12HR JUAN C Trimethoprim/Sulfamethoxazole 1 tab 05/15/20 21:00 05/16/20 08:06 Sulfameth/Trimethoprim Ds 800-160mg Tab PO 1 tab BID [facility]UAN C Administration - Exam General Appearance: NAD, awake alert Eye: PERRL, anicteric sclera ENT: normocephalic atraumatic, no oropharyngeal lesions Neck: supple, symmetric, no JVD, no thyromegaly Heart: RRR, no murmur, no gallops, no rubs Respiratory: CTAB, no wheezes, no rales, no ronchi Gastrointestinal: soft, non-tender, non-distended, normal bowel sounds Extremities: no cyanosis, no clubbing, no edema Skin: normal turgor, no lesions Neurological: no focal deficits Musculoskeletal: normal tone, normal strength Psychiatric: normal affect, normal behavior Hosp A/P (1) UTI (urinary tract infection) Status: Acute Qualifiers: Urinary tract infection type: acute cystitis Hematuria presence: without hematuria Qualified Code(s): N30.00 - Acute cystitis without hematuria (2) Metabolic encephalopathy Code(s): G93.41 - METABOLIC ENCEPHALOPATHY Status: Resolved (3) Hyponatremia Code(s): E87.1 - HYPO-OSMOLALITY AND HYPONATREMIA Status: Resolved (4) Acute kidney injury Code(s): N17.9 - ACUTE KIDNEY FAILURE, UNSPECIFIED Status: Resolved (5) Anemia, normocytic normochromic Code(s): D64.9 - ANEMIA, UNSPECIFIED Status: Chronic (6) Hypothyroidism Code(s): E03.9 - HYPOTHYROIDISM, UNSPECIFIED Status: Acute Qualifiers: Hypothyroidism type: unspecified Qualified Code(s): E03.9 - Hypothyroidism, unspecified (7) Hypertension Code(s): I10 - ESSENTIAL (PRIMARY) HYPERTENSION Status: Chronic Qualifiers: Hypertension type: essential hypertension Qualified Code(s): I10 - Essential (primary) hypertension (8) Anxiety and depression Code(s): F41.9 - ANXIETY DISORDER, UNSPECIFIED; F32.9 - MAJOR DEPRESSIVE DISORDER, SINGLE EPISODE, UNSPECIFIED Status: Chronic - Plan old records reviewed/req, PT/OT, social worker health services We will change to Bactrim DS on discharge Patient has approval to go to inpatient rehab We will discharge today and continue PT OT at rehab.
--- NOTE | 2020-05-16 11:41 | DIS ---
DATE OF ADMISSION: 05/13/2020 DATE OF DISCHARGE: 05/16/2020 PRIMARY CARE PHYSICIAN: Dr. Sujit Angeles. DISCHARGE DISPOSITION: assisted living PRIMARY DISCHARGE DIAGNOSES: 1. Urinary tract infection due to Acinetobacter. 2. Metabolic encephalopathy, resolved. 3. Hyponatremia, resolved. 4. Acute kidney injury, improved. SECONDARY DISCHARGE DIAGNOSES: 1. Hypothyroidism. 2. Normocytic normochromic anemia. 3. Anxiety and depression. 4. Hypertension. PRIMARY PROCEDURE/OPERATION: None. RADIOLOGICAL INVESTIGATION: Chest x-ray normal. CT angiography and CT [place] [facility] [place] negative for any acute process. Renal ultrasound showed bilateral renal cyst, echogenic area in lower pole of right kidney. SIGNIFICANT LABORATORY DATA: WBC 10.1, hemoglobin 10.9, platelet 378. INR 1.0. Sodium 133, creatinine 0.90, calcium 9.0. Urinalysis suggestive UTI. Urine drug screen negative. COVID-19 negative. Urine culture grew Acinetobacter. DISCHARGE MEDICATIONS: 1. Tylenol 500 mg q.4 hourly p.r.n. 2. p.o. q.4 hourly p.r.n. 3. Clonidine 0.1 mg q.6 hourly p.r.n. 4. Calcium carbonate 750 mg daily. 5. Cepacol b.i.d. p.r.n. 6. Colace 100 mg b.i.d. p.r.n. 7. Dulcolax 10 mg per rectum p.r.n. 8. Aspirin 81 mg daily. 9. Ferrous sulfate 325 mg p.o. b.i.d. 10. Folic acid 1 mg daily. 11. Levothyroxine 100 mcg p.o. daily. 12. Loperamide p.r.n. 13. Metoprolol succinate 100 mg daily. 14. MiraLAX 17 g p.o. daily. 15. Simethicone 80 mg p.o. t.i.d. p.r.n. 16. Amlodipine 2.5 mg daily. 17. Seroquel 12.5 mg b.i.d. 18. Vitamin B12 of 500 mcg p.o. daily. 19. Bactrim DS one tablet twice daily. CONTRAINDICATION: None. CODE STATUS: Full code. INPATIENT PREHEMMER: None. ALLERGIES: BENAZEPRIL, NEXIUM, HYDROCHLOROTHIAZIDE. DISCHARGE PLAN: Post hospital, the patient is discharged to rehab facility. HOSPITAL COURSE: The patient was admitted by Dr. Vernon. Please see her H and P for further details. The patient was having UTI symptoms. She had metabolic encephalopathy, which was initially attributed to be due to dehydration and UTI. She had acute kidney injury that was improved with IV fluids. Her sodium was also corrected. The patient has physical deconditioning and family recommended to send her to rehab facility and that is why with the help of sample case porter, we arranged the rehab facility for her. Overall, the patient is medically stable for discharge today. family does not want rehab but prefers now to go to assisted living facility. Job ID: [id number] [facility]
[2020-05-16 14:15] VITALS: BP 111/68; TEMP 98.4
== END 2020-05-16 14:20 | disposition home health service (06) | DRG 689 ==
LOC: ERS 21:35 → T4-B 05-12 07:01 → OBSVTOIN 05-13 15:04
PROVIDERS: ADMIT Internal Medicine; ATTEND Internal Medicine
DX: N30.00 Acute cystitis without hematuria (principal); G93.41 Metabolic encephalopathy; N17.9 Acute kidney failure, unspecified; E87.1 Hypo-osmolality and hyponatremia; E86.0 Dehydration; B96.89 Other specified bacterial agents as the cause of diseases classified elsewhere; E03.9 Hypothyroidism, unspecified; D64.9 Anemia, unspecified; F41.9 Anxiety disorder, unspecified; F32.9 Major depressive disorder, single episode, unspecified; I10 Essential (primary) hypertension; Z20.828 Contact with and (suspected) exposure to other viral communicable diseases; E78.5 Hyperlipidemia, unspecified; F03.90 Unspecified dementia, unspecified severity, without behavioral disturbance, psychotic disturbance, mood disturbance, and anxiety; Z79.899 Other long term (current) drug therapy; Z86.73 Personal history of transient ischemic attack (TIA), and cerebral infarction without residual deficits; Z79.82 Long term (current) use of aspirin; Z88.8 Allergy status to other drugs, medicaments and biological substances; Z79.890 Hormone replacement therapy
CPT/HCPCS: 36415; 70496; 70498; 71045; 76770; 80048; 80053; 80306; 80307; 81003; 81015; 82607; 82746; 83605; 83690; 83735; 84439; 84443; 84484; 85025; 85610; 85730; 87077; 87086; 87186; 87635; 96361; 96365; 96366; G0378; J0696; J2060; J3490; U0003